=== PATIENT | male | born 1985 | race Caucasian/White ===

== ENCOUNTER 2022-03-29 10:52 | Emergency (ER) | payer OTHER, SELFPAY ==
[2022-03-29 10:52] VITALS: BP 122/72; PULSE 57; RESP 14; TEMP 37.2; O2SAT 99; BMI 23.0
--- NOTE | 2022-03-29 11:02 | RAD_ITS ---
STUDY: X-RAY - RIGHT HAND, ATTENTION FIFTH FINGER REASON FOR EXAM: Male, 36 years old. Small finger trauma TECHNIQUE: view(s) of the finger were obtained. COMPARISON: None. FINDINGS: Normal metacarpal head. Normal metacarpophalangeal joint. Normal proximal phalanx. Normal middle phalanx. Comminuted nondisplaced fracture of the distal phalanx. Normal proximal interphalangeal joint. Normal distal interphalangeal joint. RAD/Finger(s) Min 2 Views IMPRESSION: Fracture of the distal phalanx. Electronically Signed: Primo Gray MD at 11:43 EDT ,
[2022-03-29] MEDS: Clindamycin HCl 150 MG Capsule 300 MG PO (12:14)
[2022-03-29] MEDS: Diphth,Pertuss(Acell),Tet Vac 0.5 ML Vial IM (12:14)
[2022-03-29 12:22] VITALS: PULSE 52; O2SAT 98
--- NOTE | 2022-03-29 12:35 | EX.ED.UPPERE ---
HPI History of Present Illness Chief Complaint: Upper Extremity Injury Informant: patient Occured/Mechanism Mechanism/Context: Yes crush Onset/Context/Timing Onset: Today Context: Sudden Onset Timing: Continuous Location: Right small finger Worsened by: Movement and touch Relieved by: Nothing Associated Symptoms Associated Symptoms: Negative for Parasthesia, Weakness and Loss of Funtion Narrative Narrative: Patient is right-hand dominant. He caught his right small finger in a rolling fence. Unsure of last tetanus immunization. No other injuries or complaints. PFSH PFSH Home Medications amoxicillin 500 mg PO Q8H #30 capsule 08/27/14 [Rx Last Taken Unknown] clindamycin HCl 300 mg PO Q8H 5 Days #30 cap 03/29/22 [Rx Last Taken Unknown] hydrocodone-acetaminophen 1 tab PO Q6H PRN PRN 3 Days #10 tablet 03/29/22 [Rx Last Taken Unknown] Allergy/AdvReac Type Severity Reaction Status Date / Time No Known Allergies Allergy Verified 03/29/22 10:54 Social History Smoking Status: Never smoker ROS ROS ED Constitutional Constitutional ED: Denies fever(s) Eyes Eyes: Denies change in vision ENT ENT ED: Denies ear pain Cardiovascular Cardiovascular: Denies chest pain Respiratory/Chest Respiratory/Chest: Denies dyspnea Gastrointestinal Gastrointestinal: Denies abdominal pain Genitourinary Genitourinary ED: Denies dysuria Musculoskeletal Musculoskeletal: Denies myalgias Integumentary Reports Abrasions; Denies abscess or rash Neurologic Neurologic: Denies headache(s), paresthesias or weakness Psychiatric Psychiatric: Denies depression Endocrine Endocrinology: Denies polyuria Hematologic/Lymphatic Hematologic/Lymphatic: Denies easy bruising Allergic/Immunologic Allergic/Immunologic ED: Denies urticaria EXAM Physical Exam Const Vital Signs: 03/29/22 10:52 03/29/22 12:22 Temperature 98.9 F Temperature Source Temporal Pulse Rate 57 L 52 L Respiratory Rate 14 Blood Pressure 122/72 H Blood Pressure Mean 88 Pulse Ox 99 98 Oxygen Delivery Method Room Air Positive well nourished and well developed General Appearance ED: well developed HEENT normocephalic Eyes EOMs intact bilaterally Resp normal respiratory effort Cardio regular rate Extremity Negative for normal to inspection Extremity Narrative: Small amount of blood noted to the distal phalanx of the right small finger. The ulnar component of the nail is pushed up through the skin. No lacerations visualized otherwise Neuro oriented x3, no focal motor deficits and no sensory deficits noted Sensorium / Orientation: alert Skin Skin Narrative: Wound to right small finger as above MDM MDM MDM Narrative Medical decision making narrative: X-rays were reviewed by the radiologist and myself. I noted a tuft fracture. Tetanus was updated. Digital block was performed by me. Landmarks palpated. Negative aspiration. A total of 4 cc of lidocaine 1% without epinephrine were used to achieve a digital block. This was successful. No complications. Wound was cleaned, irrigated, explored. His nail was only partially avulsed and I was able to put this back into good position. No other lacerations noted and he did not require sutures. Patient was advised he likely has a laceration underneath his nail bed. Risks of removing the nail and repairing that were discussed. Benefits were discussed. We will leave the nail in place. Will cover with antibiotics, clindamycin. Risks of infection were discussed. Patient will return right away for any issues. Wound care instructions were given. Follow-up with Dr. Valenzuela. Return right away for any problems. Prescription report was negative and he was given a short course of pain medication, hydrocodone. Nursing applied a dressing and aluminum splint. Disposition is discharged home Impression #1 right small finger distal phalanx fracture Impression #2 right small finger partial nail avulsion Radiography Diagnostic Testing: Clinical Impression(s) from Imaging Studies Finger X-Ray 03/29/22 11:02 IMPRESSION: Fracture of the distal phalanx. Electronically Signed: Primo Gray MD at 11:43 EDT , Discharge Plan Triage Chief Complaint: Upper Extremity Injury ED Provider: Tucker Benjamin Dx/Rx/DC Orders Instructions: ED Fracture, Finger, Open Prescriptions: New hydrocodone-acetaminophen 5-325 mg tablet 1 tab PO Q6H PRN PRN (Reason: Pain) 3 Days Qty: 10 RF: 0 clindamycin HCl 150 mg capsule 300 mg PO Q8H 5 Days Qty: 30 RF: 0 No Action amoxicillin 500 MG capsule 500 mg PO Q8H Qty: 30 RF: 0 Primary Care Provider: Care Physician,No Primary Referrals: Sree Valenzuela MD [STAFF PHYSICIAN] - Disposition Disposition: Home, Self Care
--- NOTE | 2022-03-29 12:49 | ED.RN ---
Patient ambulatory to exit. Not signs of distress or reaction to IM medication.
== END 2022-03-29 12:50 | disposition home or self-care (01) ==
PROVIDERS: Emergency Provider Emergency Medicine; Visit Provider Emergency Medicine
DX: S62.666B Nondisplaced fracture of distal phalanx of right little finger, initial encounter for open fracture (principal); W23.1XXA Caught, crushed, jammed, or pinched between stationary objects, initial encounter; Y93.9 Activity, unspecified; Y99.9 Unspecified external cause status; Y92.9 Unspecified place or not applicable; Z23 Encounter for immunization
CPT/HCPCS: 11730; 10120; 73140; 90471; 90715; 99283

== ENCOUNTER 2023-11-14 19:04 | Emergency (ER) | payer OTHER, SELFPAY ==
[2023-11-14 19:07] VITALS: BP 143/87; PULSE 83; RESP 18; TEMP 36.4; O2SAT 96; BMI 26.9
--- NOTE | 2023-11-14 19:16 | EX.ED.VIS.EY ---
HPI <STONE Capone - Last Filed: 11/14/23 19:55> History of Present Illness Chief Complaint: Eye Problem Narrative Narrative: Patient presenting today with irritation and a foreign body sensation to his left eye. He reports that he was working with a pile of materials yesterday that consisted of dirt, wood, and fiberglass. Some of this material was flying in the air and he thinks a piece of something could have landed in his left eye. He reports that it feels like an eyelash stuck in his eye, he has tried rinsing it out several times. He occasionally has pain to the eye but reports that now it is not painful. He reports slight photophobia. PFSH <STONE Capone - Last Filed: 11/14/23 19:55> REPLACED BY [facility] Medical History no medical history Home Medications amoxicillin 500 mg capsule 500 mg PO Q8H ##30 08/27/14 [Rx Last Taken Unknown] clindamycin HCl 150 mg capsule 300 mg (2 x 150 mg) PO Q8H 5 days #30 caps 03/29/22 [Rx Last Taken Unknown] hydrocodone-acetaminophen 5-325mg 5mg-325mg 1 tab PO Q6H PRN PRN Pain 3 days #10 TABLETS 03/29/22 [Rx Last Taken Unknown] erythromycin 5 mg/gram (0.5 %) eye ointment 1 applic LEFT EYE TID 7 days #3.5 grams 11/14/23 [Rx Last Taken Unknown] polymyxin B sulfate 10,000 unit-trimethoprim 1 mg/mL eye drops 1 drp LEFT EYE Q3H 7 days #10 mL 11/14/23 [Rx Last Taken Unknown] Allergy/AdvReac Type Severity Reaction Status Date / Time amoxicillin Allergy Rash Verified 11/14/23 19:06 Social History Smoking Status: Never smoker ROS <STONE Capone - Last Filed: 11/14/23 19:55> ROS ED Constitutional Constitutional ED: Denies chills or fever(s) Eyes Eyes: Reports other Details: Foreign body sensation to the left eye Cardiovascular Cardiovascular: Denies chest pain or palpitations Respiratory/Chest Respiratory/Chest: Denies cough or dyspnea Gastrointestinal Gastrointestinal: Denies abdominal pain, nausea or vomiting Musculoskeletal Musculoskeletal: Denies arthralgias or myalgias Integumentary Denies rash Neurologic Neurologic: Denies weakness EXAM <STONE Capone - Last Filed: 11/14/23 19:55> Physical Exam Const Vital Signs: 11/14/23 19:07 Temperature 97.6 F L Temperature Source Temporal Pulse Rate 83 Respiratory Rate 18 Blood Pressure 143/87 H Blood Pressure Mean 105 Pulse Ox 96 Oxygen Delivery Method Room Air Positive well nourished, well developed and no apparent distress General Appearance ED: well developed HEENT Reports normocephalic and head/scalp atraumatic Mouth ED: Yes moist mucous membranes normal Eyes PERRL and EOMs intact bilaterally Eyes Narrative: Slightly injected left cornea Neck full ROM and supple Chest Wall inspection of chest normal Resp normal respiratory effort and clear to auscultation bilaterally Cardio regular rate and regular rhythm GI soft to palpation, non-tender, non-distended and no masses Back/Spine normal ROM and normal to inspection Extremity normal to inspection and full ROM Neuro oriented x3, CN's II-XII intact bilaterally, moves all extremities, no focal motor deficits and no sensory deficits noted Sensorium / Orientation: awake and alert Psych mental status grossly normal and thought process normal Skin no rashes or lesions noted and no wounds MDM <STONE Capone - Last Filed: 11/14/23 19:55> [facility] Narrative Medical decision making narrative: Patient presenting with foreign body sensation to the left eye. He was working with a pile of materials yesterday and thinks debris could have gotten into his left eye. He has irrigated it multiple times at home. He reports irritation to the left eye, slight photophobia. He has slight corneal injection to the left. Fluorescein staining performed by the attending ED physician, no evidence of corneal abrasion or ulceration. No foreign body seen. Eye was irrigated with sterile saline. Dr. Loco was consulted and recommended polymyxin be drops and erythromycin ointment. He has been instructed to follow-up with ophthalmology Thursday and has been given return instructions. He will be discharged home in stable condition and is comfortable with plan. I have personally performed a face to face assessment of the patient and have reviewed the [facility] Note. I performed a substantive portion of the visit including all aspects of the following. My arteaga findings include: History is [patient was clearing a brush pile when he had foreign body debris go into his left eye yesterday. Patient describes more of an irritation. He never did see anything in his eye and his looked also but could not find anything. He has been splashing water in his eye but still has some irritation and tonight he had some sharp pain so he comes in for evaluation. He denies visual changes. He describes some just minimal photophobia.] Exam is [HEENT-PERRLA, EOMI. Cranial nerves II through XII grossly intact. TMs clear. Mucous membranes moist. No adenopathy. Cardiovascular-regular rate and rhythm without murmur or ectopy Lungs-clear to auscultation, chest wall stable without crepitus or subcu emphysema Abdomen-normoactive bowel sounds, soft, nontender, no rebound or rigidity, no peritoneal signs. Extremities-intact ?4, normal range of motion, normal pulses, atraumatic] Medical Decison Making [patient had fluorescein placed in the left eye after applying tetracaine and there was no evidence of foreign body or corneal abrasion. I everted both upper and lower lids and see no evidence of foreign body. I did sweep with a cotton swab along the edge of the upper lid and did not note any foreign bodies. I also irrigated with sterile saline and there was no foreign bodies. I discussed case with ophthalmology on-call Dr. Loco who recommended Polytrim drops and erythromycin ophthalmic ointment. He will call the office to make follow-up appointment. Advised to return if increasing pain, swelling, vision change, or condition should worsen anyway. Other additions or changes: [None] <Dr. Lula Lopez, DO - Last Filed: 11/14/23 20:59> [facility] Narrative Medical decision making narrative: I have personally performed a face to face assessment of the patient and have reviewed the [facility] Note. I performed a substantive portion of the visit including all aspects of the following. My arteaga findings include: History is [patient was clearing a brush pile when he had foreign body debris go into his left eye yesterday. Patient describes more of an irritation. He never did see anything in his eye and his looked also but could not find anything. He has been splashing water in his eye but still has some irritation and tonight he had some sharp pain so he comes in for evaluation. He denies visual changes. He describes some just minimal photophobia.] Exam is [HEENT-PERRLA, EOMI. Cranial nerves II through XII grossly intact. TMs clear. Mucous membranes moist. No adenopathy. Cardiovascular-regular rate and rhythm without murmur or ectopy Lungs-clear to auscultation, chest wall stable without crepitus or subcu emphysema Abdomen-normoactive bowel sounds, soft, nontender, no rebound or rigidity, no peritoneal signs. Extremities-intact ?4, normal range of motion, normal pulses, atraumatic] Medical Decison Making [patient had fluorescein placed in the left eye after applying tetracaine and there was no evidence of foreign body or corneal abrasion. I everted both upper and lower lids and see no evidence of foreign body. I did sweep with a cotton swab along the edge of the upper lid and did not note any foreign bodies. I also irrigated with sterile saline and there was no foreign bodies. I discussed case with ophthalmology on-call Dr. Loco who recommended Polytrim drops and erythromycin ophthalmic ointment. He will call the office to make follow-up appointment. Advised to return if increasing pain, swelling, vision change, or condition should worsen anyway. Other additions or changes: [None] Discharge Plan Triage Chief Complaint: Eye Problem ED Midlevel Provider: Ghislaine Mccollum ED Provider: Lula Lopez Dx/Rx/DC Orders Clinical Impression: Corneal irritation of left eye Instructions: ED Conjunctival Foreign Body, Resolved Prescriptions: New polymyxin B sulf-trimethoprim 10,000 unit- 1 mg/mL drops 1 drp LEFT EYE Q3H 7 Days Qty: 10 0RF Rx Instructions: while awake; do not exceed 6 doses in 24 hours erythromycin 5 mg/gram (0.5 %) ointment 1 applic LEFT EYE TID 7 Days Qty: 3.5 0RF No Action amoxicillin 500 MG capsule 500 mg PO Q8H Qty: 30 0RF hydrocodone-acetaminophen 5-325 mg tablet 1 tab PO Q6H PRN PRN (Reason: Pain) 3 Days Qty: 10 0RF clindamycin HCl 150 mg capsule 300 mg PO Q8H 5 Days Qty: 30 0RF Primary Care Provider: Care Physician,No Primary Referrals: Nichol Loco MD [Med Staff - Active Staff] - 1-2 Days if not improving Care Physician,No Primary [Primary Care Provider] - Activity Restrictions/Additional Instructions: Follow-up with ophthalmology for any worsening of your symptoms. Disposition Disposition: Home, Self Care Discharge Date/Time: 11/14/23 20:00
[2023-11-14] MEDS: Tetracaine 0.5% Ophthalmic Bottle 1 DRP LEFT EYE (19:21)
[2023-11-14] MEDS: Fluorescein 1 MG STRIP 1 STRIP LEFT EYE (19:22)
[2023-11-14] MEDS: Sodium/Calcium/Mag/Potassium 15 ML Bottle LEFT EYE (19:26)
--- OUTSIDE RECORDS SUMMARY | 2023-11-14 19:41 | XMS RPT_ITS | CCD ---
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 Name Role Phone Yani GHOTRA, Ramakrishna Bejarano Primary Care Provider Allergies Allergy Classification Reported Allergen(s) Allergy Type Date of Onset Reaction(s) Facility (4 sources) Amoxicillin Drug Allergy 09-05-2014 Itching [facility] Problems Active Problems Problem Classification Problem Date Documented Da te Episodic/Chronic Abdominal pain (2 sources) Right flank pain; Translations: [Unspecified abdominal pain] Episodic Past or Other Problems Problem Classification Problem Date Documented Da te Episodic/Chronic Other male genital disorders (4 sources) Cyst of epididymis; Translations: [Cyst of epididymis] Onset: 11-28-2016 11-28-2016 Episodic Results Test Name Value Interpretation Reference Range Facil ity Vital Signs Date Time Vital Sign Value Performing Clinician Kami morillo 06-06-2022 08:50-0400 Body weight 84.37 kg Grace Siegel APRN.CNP Work Phone: [facility] 06-06-2022 08:50-0400 Diastolic blood pressure 76 mm[Hg] Grace Siegel APRN.FLORAL ASSOCIATE Work Phone: [facility] 06-06-2022 08:50-0400 Heart rate 64 /min Grace Siegel APRN.FLORAL ASSOCIATE Work Phone: [facility] 06-06-2022 08:50-0400 Respiratory rate 16 /min Grace Siegel APRN.ALEXANDR Work Phone: [facility] 06-06-2022 08:50-0400 SaO2% (BldA) [Mass fraction] 97 % Grace Siegel APRN.CNP Work Phone: [facility] 06-06-2022 08:50-0400 Systolic blood pressure 112 mm[Hg] Grace Siegel APRN.CNP Work Phone: [facility] Encounters Encounter Date Encounter Type Care Provider Facility Start: 06-09-2022 Telephone encounter Grace diaz APRN.CNP Work Phone: [facility] Procedures Date Procedure Procedure Detail Performing Clinician Start: 06-06-2022 Ct abdomen & pelvis w/o contrast material Grace Siegel APRN.ALEXANDR Work Phone: Start: 01-10-2022 Adult depression screening assessment Grace Siegel APRN.CNP Work Phone: Plan of Treatment Date Care Activity Detail Author Start: 01-10-2023 Adult depression scr eening assessment DEPRESSION SCREENING [facility] Start: 01-10-2023 COVID-19 VACCINE (#1) COVID-19 VACCI NE (#1) [facility] Payers Date Payer Category Payer Unknown MMO MMO [employer] [id number] 2021-Present [phone] [address] [place] [address] PPO [id number] Social History Date Type Detail Facility Tobacco smoking stat us WAIS Never smoked tobacco [facility] Start: 06-06-2022 Alcohol intake Current drinke r of alcohol (finding) [facility] Start: 02-16-2014 History SDOH Alcohol Comment socially [facility] Start: 1985 Sex Assigned At Not on file C [facility] Start: 05-27-2022 End: 06-06-2022 Exposure to SARS-CoV-2 (event) Not sure [facility] Clinical Notes 02-16-2014 to 06-09-2022 Telephone Encounter - Betty Teran Ma - 06/09/2022 8:37 AM EDTTelephone Encounter - Grace Siegel APRN.CNP - 06/09/2022 7:44 AM Mark Oneal RT(R) - 06/06/2022 11:40 AM EDT Note Date & Type Note Facility 06-09-2022 Miscellaneous Notes Letter mailed to pt home of results. Betty Teran MA Can you please call the patient and let him know that all his labs were all normal. I see no causes at this time for his symptoms. I would treat this current pain as a back strain. Continue with anti-inflammatories and ice/heat to the area. No further testing needed at this time. Please let me know if he has any questions. Thank you. Grace Siegel APRN.ALEXANDR documented in this encounter [facility] 06-06-2022 Miscellaneous Notes Patient returned call and went over results, notes from Grace Siegel INDUSTRIAL ORGANIZATION MANAGER with understanding. TC to Pt. Unable to LM due to the mailbox is full. Will try again later. No active MY Chart. Es Martini LPN Can you please call the patient and let him know that I reviewed his CT results. CT was normal, no stones or abnormalities were noted. I would recommend that he continue with the use of anti-inflammatories for pain and ice to the area. Please let him know that the office will be in contact with him once I am able to review lab and urine results. Please let me know if he has any questions. Thank you. Grace Siegel APRN.ALEXANDR documented in this encounter [facility] 06-06-2022 Note HNO ID: [id number] Author: RT Brandin(R) Service: ? Author Type: Assistant Controller Type: Progress Notes Filed: 06/06/2022 12:13 PM Note Text: Radiology Service Progress Note PATIENT NAME: Sabino Lopez DATE OF SERVICE: June 06, 2022 TIME: 12:13 PM PATIENT IDENTITY VERIFICATION COMPLETED USING TWO (2) IDENTIFIERS: Name and Date of confirmed by patient verbally. FALL SCREENING: Has the patient had 2 falls in the last year or 1 fall with injury or currently using an Ambulatory Assistive Device (Walker, Cane, Wheelchair, Crutches, etc.)? No PATIENT GENDER DATA: Male PATIENT RELEVANT IMPLANT DATA REVIEWED: Not Applicable RADIOLOGY DEPARTMENT: CT; Exam(s) Completed: Abdomen/Pelvis PERIPHERAL IV DATA: Not applicable SIGNED BY: RT Steff(R) June 06, 2022 12:[address] [facility] 06-06-2022 History of Presen t illness Narrative Radiology Service Progress Note PATIENT NAME: Sabino Lopez DATE OF SERVICE: June 06, 2022 TIME: 12:13 PM PATIENT IDENTITY VERIFICATION COMPLETED USING TWO (2) IDENTIFIERS: Name and Date of confirmed by patient verbally. FALL SCREENING: Has the patient had 2 falls in the last year or 1 fall with injury or currently using an Ambulatory Assistive Device (Walker, Cane, Wheelchair, Crutches, etc.)? No PATIENT GENDER DATA: Male PATIENT RELEVANT IMPLANT DATA REVIEWED: Not Applicable RADIOLOGY DEPARTMENT: CT; Exam(s) Completed: Abdomen/Pelvis PERIPHERAL IV DATA: Not applicable SIGNED BY: RT Steff(R) June 06, 2022 12:13 PM documented in this encounter [facility] 06-06-2022 Note HNO ID: [id number] Author: Grace Siegel APRN.CNP Service: ? Author Type: Nurse Practitioner Type: Progress Notes Filed: 06/06/2022 9:26 AM Note Text: This is a 36 year old male who presents today with: Patient presents with: Acute Visit: back pain HISTORY OF PRESENT ILLNESS: Sabino Lopez is a 36 year old male. Patient presents with: Acute Visit: back pain Here in the office for back pain. Right sided back pain that started yesterday. Woke up in the middle of the night with it. Pain is sharp that waxes and wanes. Worse with laying flat. No injury to the area. Tried aleve which was not beneficial. No urinary symptoms. No numbness/tingling in the leg, no loss of bowel/bladder, or saddle anesthesia. Family history of kidney stones. PAST MEDICAL HISTORY: PAST MEDICAL HISTORY Diagnosis Date - NEGATIVE MEDICAL HISTORY PAST SURGICAL HISTORY Procedure Laterality Date - NONE ALLERGIES Amoxicillin MEDICATIONS No current outpatient medications on file. No current facility-administered medications for this visit. FAMILY HISTORY Problem Relation Age of Onset - Diabetes Maternal Grandmother - Diabetes Maternal Grandfather - Diabetes Paternal Grandmother - Diabetes Paternal Grandfather - DVT Mother Social History Tobacco Use - Smoking status: Never Smoker - Smokeless tobacco: Never Used Substance Use Topics - Alcohol use: Yes Comment: socially - Drug use: No REVIEW OF SYSTEMS GENERAL: No weight loss, malaise or fevers/chills HEENT: Negative for frequent or significant headaches, No changes in hearing or vision. NECK: Negative for lumps, goiter, pain and significant neck swelling RESPIRATORY: Negative for cough, hemoptysis, wheezing, dyspnea or shortness of breath CARDIOVASCULAR: Negative for chest pain, leg swelling, orthopnea, or palpitations GI: No nausea, vomiting, or diarrhea/constipation. No hematochezia/melena. No heartburn or reflux symptoms. : No history of dysuria, frequency or incontinence MUSCULOSKELETAL: + Back Pain SKIN: Negative for lesions, rash, and itching ENDOCRINE: Negative for cold or heat intolerance, polyuria, polydipsia and goiter NEURO: No history of headaches, syncope, paralysis, seizures or tremors MOOD: Negative for depression, anxiety, or suicidal ideation. EXAM: BP 112/76 Pulse 64 Resp 16 Wt 84.4 kg (186 lb) SpO2 97% BMI 26.78 kg/m? PHYSICAL EXAM: General Appearance: Well appearing, alert, in no acute distress, well-hydrated, well nourished. Skin: Skin color, texture, turgor normal, no suspicious rashes or lesions. Head: Normocephalic, no masses, lesions, tenderness or abnormalities. Eyes: Anicteric sclera. Extraocular movements are intact. Lungs: Lungs clear to auscultation. No wheezing, rhonchi, rales. Heart: RRR without murmur, gallop, or rubs. No ectopy. Abdomen: Normal abdominal exam, Abdomen soft, non-tender. Bowel sounds normal. No masses, organomegaly, + Right CVA tenderness. Extremities: No deformities, edema, skin discoloration, clubbing or cyanosis. Good capillary refill. Musculoskeletal: No joint swelling, deformity, or tenderness. Full ROM of spine. Negative SLR. Peripheral Pulses: Normal, Capillary refill <2secs, strong peripheral pulses, Pulses palpable. Neurologic: Gait normal. Reflexes normal and symmetric. Sensation grossly intact. ASSESSMENT/PLAN: 1. Right flank pain - ICD9: 789.09, ICD10: R10.9 - Labs of CBC with Diff, CMP and Urine analysis - Work up with CT flank study - Continue with NSAIDs as needed for pain, patient denied wanting any prescription pain medication at this time. - Red flag symptoms go to ER. - CBC + DIFF - COMP METABOLIC PANEL - URINALYSIS, WITH MICROSCOPIC - CT FLANK WO IVCON Follow-up pending test results or sooner as needed. Discussed treatment plan and patient voices understanding. Patient's questions answered appropriately. Medications and potential side effects were discussed and patient voices understanding. Grace Siegel APRN.ALEXANDR This note was partially generated using [employer] voice recognition system. Note was reviewed for accuracy. There may be minor misspellings or grammar miscues with [employer] voice recognition. [facility] 06-06-2022 Instructions Grace Siegel APRN.CNP - 06/06/2022 9:01 AM EDT 1.) Get labs and urine testing completed today. 2.) Schedule appointment for CT as soon as possible. 3.) Stay well hydrated, continue with Ibuprofen or motrin at home as needed for pain. 4.) Red flag symptoms go to ER. 5.) Follow up pending test results or sooner as needed. documented in this encounter [facility] 06-06-2022 History of Presen t illness Narrative This is a 36 year old male who presents today with: Patient presents with: Acute Visit: back pain HISTORY OF PRESENT ILLNESS: Sabino Lopez is a 36 year old male. Patient presents with: Acute Visit: back pain Here in the office for back pain. Right sided back pain that started yesterday. Woke up in the middle of the night with it. Pain is sharp that waxes and wanes. Worse with laying flat. No injury to the area. Tried aleve which was not beneficial. No urinary symptoms. No numbness/tingling in the leg, no loss of bowel/bladder, or saddle anesthesia. Family history of kidney stones. PAST MEDICAL HISTORY: PAST MEDICAL HISTORY Diagnosis Date NEGATIVE MEDICAL HISTORY PAST SURGICAL HISTORY Procedure Laterality Date NONE ALLERGIES Amoxicillin MEDICATIONS No current outpatient medications on file. No current facility-administered medications for this visit. FAMILY HISTORY Problem Relation Age of Onset Diabetes Maternal Grandmother Diabetes Maternal Grandfather Diabetes Paternal Grandmother Diabetes Paternal Grandfather DVT Mother Social History Tobacco Use Smoking status: Never Smoker Smokeless tobacco: Never Used Substance Use Topics Alcohol use: Yes Comment: socially Drug use: No REVIEW OF SYSTEMS GENERAL: No weight loss, malaise or fevers/chills HEENT: Negative for frequent or significant headaches, No changes in hearing or vision. NECK: Negative for lumps, goiter, pain and significant neck swelling RESPIRATORY: Negative for cough, hemoptysis, wheezing, dyspnea or shortness of breath CARDIOVASCULAR: Negative for chest pain, leg swelling, orthopnea, or palpitations GI: No nausea, vomiting, or diarrhea/constipation. No hematochezia/melena. No heartburn or reflux symptoms. : No history of dysuria, frequency or incontinence MUSCULOSKELETAL: + Back Pain SKIN: Negative for lesions, rash, and itching ENDOCRINE: Negative for cold or heat intolerance, polyuria, polydipsia and goiter NEURO: No history of headaches, syncope, paralysis, seizures or tremors MOOD: Negative for depression, anxiety, or suicidal ideation. EXAM: BP 112/76 Pulse 64 Resp 16 Wt 84.4 kg (186 lb) SpO2 97% BMI 26.78 kg/m PHYSICAL EXAM: General Appearance: Well appearing, alert, in no acute distress, well-hydrated, well nourished. Skin: Skin color, texture, turgor normal, no suspicious rashes or lesions. Head: Normocephalic, no masses, lesions, tenderness or abnormalities. Eyes: Anicteric sclera. Extraocular movements are intact. Lungs: Lungs clear to auscultation. No wheezing, rhonchi, rales. Heart: RRR without murmur, gallop, or rubs. No ectopy. Abdomen: Normal abdominal exam, Abdomen soft, non-tender. Bowel sounds normal. No masses, organomegaly, + Right CVA tenderness. Extremities: No deformities, edema, skin discoloration, clubbing or cyanosis. Good capillary refill. Musculoskeletal: No joint swelling, deformity, or tenderness. Full ROM of spine. Negative SLR. Peripheral Pulses: Normal, Capillary refill <2secs, strong peripheral pulses, Pulses palpable. Neurologic: Gait normal. Reflexes normal and symmetric. Sensation grossly intact. ASSESSMENT/PLAN: 1. Right flank pain - ICD9: 789.09, ICD10: R10.9 - Labs of CBC with Diff, CMP and Urine analysis - Work up with CT flank study - Continue with NSAIDs as needed for pain, patient denied wanting any prescription pain medication at this time. - Red flag symptoms go to ER. - CBC + DIFF - COMP METABOLIC PANEL - URINALYSIS, WITH MICROSCOPIC - CT FLANK WO IVCON Follow-up pending test results or sooner as needed. Discussed treatment plan and patient voices understanding. Patient's questions answered appropriately. Medications and potential side effects were discussed and patient voices understanding. Grace Siegel APRN.CNP This note was partially generated using [employer] voice recognition system. Note was reviewed for accuracy. There may be minor misspellings or grammar miscues with [employer] voice recognition. documented in this encounter [facility] 01-10-2022 Note HNO ID: [id number] Author: Grace Siegel APRN.CNP Service: ? Author Type: Nurse Practitioner Type: Progress Notes Filed: 01/10/2022 12:05 PM Note Text: This is a 36 year old male who presents today with: Patient presents with: Physical: trans. care to [facility] HISTORY OF PRESENT ILLNESS: Sabino Lopez is a 36 year old male. Patient presents with: Physical: trans. [facility] Here in the office for wellness exam and to establish care. PCP (Dr. Lee) retired. Diet: Working on eating a well balanced diet. Exercise: Active with house work, but no regimen. Vision: Due for exam but no difficulties. Dental: Had exam. Sleep: 6-8 hours. Mood: Denies any increased sadness, anxiety, or SI/HI. Vaccines: Due for Tdap, will wait to get when get Tdap booster in 3rd trimester. PAST MEDICAL HISTORY: PAST MEDICAL HISTORY Diagnosis Date - NEGATIVE MEDICAL HISTORY PAST SURGICAL HISTORY Procedure Laterality Date - NONE ALLERGIES Amoxicillin MEDICATIONS Current Outpatient Medications Medication Sig - fluticasone (FLONASE) 50 mcg/actuation nasal spray Use 2 Sprays in each nostril once daily. Rinse mouth after use. No current facility-administered medications for this visit. FAMILY HISTORY Problem Relation Age of Onset - Diabetes Maternal Grandmother - Diabetes Maternal Grandfather - Diabetes Paternal Grandmother - Diabetes Paternal Grandfather - DVT Mother Social History Tobacco Use - Smoking status: Never Smoker - Smokeless tobacco: Never Used Substance Use Topics - Alcohol use: Yes Comment: socially - Drug use: No REVIEW OF SYSTEMS GENERAL: No weight loss, malaise or fevers/chills HEENT: Negative for frequent or significant headaches, No changes in hearing or vision. NECK: Negative for lumps, goiter, pain and significant neck swelling RESPIRATORY: Negative for cough, hemoptysis, wheezing, dyspnea or shortness of breath CARDIOVASCULAR: Negative for chest pain, leg swelling, orthopnea, or palpitations GI: No nausea, vomiting, or diarrhea/constipation. No hematochezia/melena. No heartburn or reflux symptoms. : No history of dysuria, frequency or incontinence MUSCULOSKELETAL: Negative for joint pain or swelling. SKIN: Negative for lesions, rash, and itching ENDOCRINE: Negative for cold or heat intolerance, polyuria, polydipsia and goiter NEURO: No history of headaches, syncope, paralysis, seizures or tremors MOOD: Negative for depression, anxiety, or suicidal ideation. EXAM: BP 107/85 Pulse 79 Resp 16 Ht 177.5 cm (5' 9.88 ) Wt 84.8 kg (187 lb) SpO2 97% BMI 26.92 kg/m? PHYSICAL EXAM: General Appearance: Well appearing, alert, in no acute distress, well-hydrated, well nourished. Skin: Skin color, texture, turgor normal, no suspicious rashes or lesions. Head: Normocephalic, no masses, lesions, tenderness or abnormalities. Eyes: Anicteric sclera. Pupils are equally round and reactive to light. Extraocular movements are intact. Ears: External ears normal, canals clear. TM's pearly nair. Neck: Supple, no adenopathy; thyroid symmetric, normal size, no bruits. Lungs: Lungs clear to auscultation. No wheezing, rhonchi, rales. Heart: RRR without murmur, gallop, or rubs. No ectopy. Abdomen: Normal abdominal exam, Abdomen soft, non-tender. Bowel sounds normal. No masses, organomegaly, Negative CVA tenderness. Extremities: No deformities, edema, skin discoloration, clubbing or cyanosis. Good capillary refill. Musculoskeletal: No joint swelling, deformity, or tenderness. Peripheral Pulses: Normal, Capillary refill <2secs, strong peripheral pulses, Pulses palpable. Neurologic: Gait normal. Reflexes normal and symmetric. Sensation grossly intact. Mood: Pleasant, good eye contact, engaged. ASSESSMENT/PLAN: 1. Wellness examination - ICD9: V70.0, ICD10: Z00.00 (primary diagnosis) - Counseled on healthy diet and regular exercise - Depression screening tool completed and reviewed with patient. Based on score and interview, patient is not at risk for depression and recommended no further intervention at this time. - Follow up for annual exam in one year - COMP METABOLIC PANEL 2. Screening for diabetes mellitus - ICD9: V77.1, ICD10: Z13.1 - HGB A1C 3. Screening cholesterol level - ICD9: V77.91, ICD10: Z13.220 - LIPID PANEL BASIC Follow up in 1 year or sooner as needed. Discussed treatment plan and patient voices understanding. Patient's questions answered appropriately. Medications and potential side effects were discussed and patient voices understanding. Grace Siegel APRN.FLORAL ASSOCIATE This note was partially generated using [employer] voice recognition system. Note was reviewed for accuracy. There may be minor misspellings or grammar miscues with [employer] voice recognition. [facility] 11-15-2021 Note HNO ID: [id number] Author: Jose Galdamez MA Service: ? Author Type: Transactional Attorney Type: Progress Notes Filed: 11/15/2021 3:15 PM Note Text: POPULATION HEALTH NAVIGATION OUTREACH Action/FYI PCP OFF BOARDING OUTREACH Attempt # 1 Spoke with patient, stated he was aware of Dr Jesus gil, has not selected a new provider will research before scheduling. Pt will call back when ready to schedule. PCP updated today to NO PCP for now. Pt aware. Encounter closed. Contact made with patient or family member? YES Pt identified by name and : YES Outreach Outcome/Action Spoke to patient or caregiver: Patient will return the call or ask for return call PCP field updated Reason for Outreach Attribution: Provider Off-boarding Payer: Payor: MMO / Plan: MMO [employer] / Product Type: PPO / Care Gap Reviewed:: Flu vaccine Reminder: Reminder note to check Health Maintenance for items below Health Maintenance items due: COVID-19 VACCINE(1) Never done HEPATITIS C SCREENING Never done HIV SCREENING Never done DTAP,TDAP,TD(1 - Tdap) Never done DEPRESSION SCREENING due on 08/12/2020 INFLUENZA(1) due on 07/10/2021 Jose Galdamez MA November 15, 2021 3:[address] [facility] 11-14-2021 Note Patient Outreach (LAUREN TNAV) SABINO LOPEZ ([id number]) 1985 M Date Time Provider Department 11/14/21 JOSE GALDAMEZ During your visit today, we recorded the following information about you: Jose Galdamez MA 11/15/2021 3:15 PM Signed POPULATION HEALTH NAVIGATION OUTREACH Action/FYI PCP OFF BOARDING OUTREACH Attempt # 1 Spoke with patient, stated he was aware of Dr Jesus gil, has not selected a new provider will research before scheduling. Pt will call back when ready to schedule. PCP updated today to NO PCP for now. Pt aware. Encounter closed. Contact made with patient or family member? YES Pt identified by name and : YES Outreach Outcome/Action Spoke to patient or caregiver: Patient will return the call or ask for return call PCP field updated Reason for Outreach Attribution: Provider Off-boarding Payer: Payor: MMO / Plan: MMO [employer] / Product Type: PPO / Care Gap Reviewed:: Flu vaccine Reminder: Reminder note to check Health Maintenance for items below Health Maintenance items due: COVID-19 VACCINE(1) Never done HEPATITIS C SCREENING Never done HIV SCREENING Never done DTAP,TDAP,TD(1 - Tdap) Never done DEPRESSION SCREENING due on 08/12/2020 INFLUENZA(1) due on 07/10/2021 Jose Galdamez MA November 15, 2021 3:11 PM Allergies As of Date: 11/14/2021 Noted Allergy Reaction AMOXICILLIN 09/05/2014 9 - Itching Date Reviewed: 04/19/2021 Reviewed by: Nader Gauthier LPN - Fully Assessed Reason for Visit: Population Health Navigation Outreach [3910] Cmt: Offboarding - Dr Lee III Prescriptions as of 11/15/2021 - fluticasone (FLONASE) 50 mcg/actuation nasal spray Use 2 Sprays in each nostril once daily. Rinse mouth after use. Problem List As Of Date 11/14/2021 Noted Resolved Sebaceous cyst [L72.3] 02/16/2014 11/28/2016 Epididymal cyst [N50.3] 11/28/2016 Encounter Status:Closed by JOSE GALDAMEZ on 11/15/21 [facility] documented as of this encounter (statuses as of 06/06/2022) [facility] History of Past illness Narrative* Problem Noted Date Resolved Date Sebaceous cyst 02/16/2014 11/28/2016 documented as of this encounter (statuses as of 06/06/2022) [facility] History of Past illness Narrative* Problem Noted Date Resolved Date Sebaceous cyst 02/16/2014 11/28/2016 documented as of this encounter (statuses as of 06/07/2022) [facility] History of Past illness Narrative* Problem Noted Date Resolved Date Sebaceous cyst 02/16/2014 11/28/2016 documented as of this encounter (statuses as of 06/09/2022) [facility] Right [facility]- Primary Abdominal pain, unspecified site [facility] Diagnosis Right flank pain Abdominal pain, unspecified site documented in this encounter [facility] Reason for Referral Specialty Diagnoses / Procedures Referred By Denny t Referred To Contact CT IMAGING Diagnoses Right flank pain Procedures CT FLANK WO IVCON CT ABD & PELVIS W/O CONTRAST Grace Siegel, SAJAN.FLORAL ASSOCIATE [address] [place] [address] Ct Imaging Referral ID Status Reason Start Date Expiration Date V isits Requested Visits Authorized [id number] Closed Auto-Generate d Referral 06/06/2022 07/21/2022 1 1 Summary Purpose Family History No Family History Records Found Advance Directives No Advanced Directives Records Found Additional Source Comments Source Comments (unrecognize d section and content) In the event this informatio n is protected by the Federal Confidentiality of Alcohol and Drug Abuse Patient Records regulations: The Federal rules restrict any use of the information to criminally investigate or prosecute any alcohol or drug abuse patient.[facility] the event this information is protected by the Federal Confidentiality of Alcohol and Drug Abuse Patient Records regulations: The Federal rules restrict any use of the information to criminally investigate or prosecute any alcohol or drug abuse patient.[facility] the event this information is protected by the Federal Confidentiality of Alcohol and Drug Abuse Patient Records regulations: The Federal rules restrict any use of the information to criminally investigate or prosecute any alcohol or drug abuse patient.[facility] the event this information is protected by the Federal Confidentiality of Alcohol and Drug Abuse Patient Records regulations: The Federal rules restrict any use of the information to criminally investigate or prosecute any alcohol or drug abuse patient.[facility] Reason for Visit (unrecogniz ed section and content) Reason Comments Results CT Reason Comments Radiology CT Specialty Diagnoses / Procedures Referred By Denny randolph Referred To Contact CT IMAGING Diagnoses Right flank pain Procedures CT FLANK WO IVCON CT ABD & PELVIS W/O CONTRAST Grace Siegel APRN.[facility]DR [address] [place] [address] Ct Imaging Referral ID Status Reason Start Date Expiration Date V isits Requested Visits Authorized [id number] Closed Auto-Generate d Referral 06/06/2022 07/21/2022 1 1 Reason Comments Results Labs Care Teams (unrecognized sec tion and content) [employer] Relationship Specialty Start Date End Date Ramakrishna Lomeli MD [address] [place] [address] PCP - General Family Practice 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 This clinical summary was aggregated from multiple sources. Caution should be exercised in using it in the provision of clinical care. This summary normalizes information from multiple sources, and as a consequence, information in this document may materially change the coding, format and clinical context of patient data. In addition, data may be omitted in some cases. CLINICAL DECISIONS SHOULD BE BASED ON THE PRIMARY CLINICAL RECORDS. [employer] [facility]. provides no warranty or guarantee of the accuracy or completeness of information in this document.
[2023-11-14] MEDS: Erythromycin Base 1 OPTH.TUBE 1 APPLIC LEFT EYE (19:58)
== END 2023-11-14 20:00 | disposition home or self-care (01) ==
PROVIDERS: Emergency Provider Emergency Medicine; Visit Provider Emergency Medicine
DX: H57.8A2 Foreign body sensation, left eye (principal)
CPT/HCPCS: 99283